=== PATIENT | female | born 2000 | race Caucasian/White ===

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

== ENCOUNTER 2022-02-17 17:51 | Emergency (ER) | payer MEDICAID, OTHER ==
[2022-02-17] MEDS ORDERED: Alum Hydrox/Mag Hydrox/Simeth 30 ML, Lidocaine 2% 15 ML PO ONE ×2 (18:07)
[2022-02-17 20:20] VITALS: BP 109/67; PULSE 90
== END 2022-02-17 20:05 | disposition home or self-care (01) ==
LOC: JD.ED 17:51
DX: R07.89 Other chest pain (principal); F17.210 Nicotine dependence, cigarettes, uncomplicated; E66.9 Obesity, unspecified; Z68.37 Body mass index [BMI] 37.0-37.9, adult; Z86.16 Personal history of COVID-19
CPT/HCPCS: 36415; 71045; 80053; 81025; 83735; 84443; 84484; 85025; 85379; 93005; 99285; A9270; 99284

== ENCOUNTER 2022-03-22 11:25 | Emergency (ER) | payer MEDICAID ==
[2022-03-22 12:14] VITALS: BP 114/74; PULSE 85
[2022-03-22] MEDS ORDERED: Lactated Ringers 1,000 ML IV ONE ×2 (12:59→15:30)
[2022-03-22] MEDS ORDERED: Vitamin B6-pyridOXINE 50 MG Tab PO STA (15:30)
== END 2022-03-22 16:17 | disposition home or self-care (01) ==
LOC: JD.ED 11:25
DX: O99.891 Other specified diseases and conditions complicating pregnancy (principal); R19.7 Diarrhea, unspecified; Z86.16 Personal history of COVID-19; Z3A.01 Less than 8 weeks gestation of pregnancy
CPT/HCPCS: 36415; 80053; 83690; 83735; 84703; 85025; 96360; 99284; A9270; J7120

== ENCOUNTER 2022-04-24 11:03 | Emergency (ER) | payer MEDICAID, OTHER ==
[2022-04-24 11:14] VITALS: BP 112/78; PULSE 94
[2022-04-24] MEDS ORDERED: Sodium Chloride 0.9% 10 ML Syringe FLUSH PRN (11:15)
== END 2022-04-24 12:54 | disposition home or self-care (01) ==
LOC: JD.ED 11:03
DX: O26.851 Spotting complicating pregnancy, first trimester (principal); E66.9 Obesity, unspecified; Z3A.12 12 weeks gestation of pregnancy; Z86.16 Personal history of COVID-19; Z87.891 Personal history of nicotine dependence; Z68.38 Body mass index [BMI] 38.0-38.9, adult
CPT/HCPCS: 36415; 76801; 76801-26; 80053; 81001; 85025; 99284

== ENCOUNTER 2022-05-28 08:21 | Emergency (ER) | payer MEDICAID ==
[2022-05-28 09:50] VITALS: BP 120/54; PULSE 99
[2022-05-28] MEDS ORDERED: Sodium Chloride 0.9% 1,000 ML IV ONE (10:06)
[2022-05-28] MEDS ORDERED: Ondansetron 4 MG Tab.DIS PO ONE (10:56)
== END 2022-05-28 12:04 | disposition home or self-care (01) ==
LOC: JD.ED 08:21
DX: O99.891 Other specified diseases and conditions complicating pregnancy (principal); R10.9 Unspecified abdominal pain; Z3A.17 17 weeks gestation of pregnancy; Z86.16 Personal history of COVID-19
CPT/HCPCS: 36415; 81003; 84702; 96360; 99284; A9270; J7030; 99283

== ENCOUNTER 2023-06-18 12:02 | Emergency (ER) | payer MEDICAID ==
[2023-06-18 14:54] LABS: APPEARANCE,URINE CLEAR (Clear); BILIRUBIN,URINE NEGATIVE (Negative); COLOR,URINE YELLOW (Yellow); GLUCOSE,URINE NEGATIVE (Negative); KETONES,URINE 3+ (Negative); LEUKOCYTE ESTERASE,URINE 1+ (Negative); NITRITE,URINE NEGATIVE (Negative); OCCULT BLOOD,URINE NEGATIVE (Negative); PROTEIN,URINE NEGATIVE (Negative); UROBILINOGEN,URINE 0.2 (0.2-1.0)
[2023-06-18 15:10] LABS: BACTERIA,URINE MODERATE /hpf (FEW); EPITHELIAL CELLS,URINE 20-30 /hpf (0-5); MUCUS,URINE MODERATE /hpf (FEW); RBC,URINE 0-5 /hpf (0-5); WBC,URINE 20-30 /hpf (0-5)
[2023-06-18] MEDS ORDERED: Amoxicillin/Clavulanate K 875-125 MG Tab PO ONE (15:20)
[2023-06-18 15:44] VITALS: BP 109/73; PULSE 105
== END 2023-06-18 15:40 | disposition home or self-care (01) ==
LOC: JD.ED 12:02
DX: O26.852 Spotting complicating pregnancy, second trimester (principal); E66.9 Obesity, unspecified; Z86.16 Personal history of COVID-19; Z3A.15 15 weeks gestation of pregnancy
CPT/HCPCS: 76801; 81001; 87086; 99284; A9270; 99283

== ENCOUNTER 2023-07-21 14:56 | Emergency (ER) | payer MEDICAID ==
[2023-07-21 15:09] VITALS: BP 147/90; PULSE 98
== END 2023-07-21 16:26 | disposition left against medical advice (07) ==
LOC: JD.ED 14:56
DX: Z53.21 Procedure and treatment not carried out due to patient leaving prior to being seen by health care provider (principal)

== ENCOUNTER 2023-08-14 09:46 | Observation (INO) | payer MEDICAID ==
[2023-08-14 10:49] VITALS: BP 118/77; PULSE 90
== END 2023-08-14 10:47 | disposition home or self-care (01) ==
LOC: JD.OBCHECK 09:46 → JD.OB 09:49 → JD.OBCHECK 09:58 → JD.OB 09:59
PROVIDERS: ADMIT Family Medicine; ATTEND Family Medicine
DX: O99.891 Other specified diseases and conditions complicating pregnancy (principal); N89.8 Other specified noninflammatory disorders of vagina; O36.8190 Decreased fetal movements, unspecified trimester, not applicable or unspecified; Z3A.34 34 weeks gestation of pregnancy
CPT/HCPCS: 59025; 84112; G0378

== ENCOUNTER 2024-06-27 18:02 | Emergency (ER) | payer MEDICAID, OTHER ==
[2024-06-27 18:20] VITALS: BP 129/72; PULSE 88
[2024-06-27] MEDS ORDERED: Lidocaine 1% 10 ML MDV INJECT ONE (18:48)
== END 2024-06-27 19:15 | disposition left against medical advice (07) ==
LOC: JD.ED 18:02
DX: S91.321A Laceration with foreign body, right foot, initial encounter (principal); E66.9 Obesity, unspecified; Z86.16 Personal history of COVID-19; Z68.41 Body mass index [BMI] 40.0-44.9, adult; W25.XXXA Contact with sharp glass, initial encounter
CPT/HCPCS: 99282; 99283

== ENCOUNTER 2025-03-15 09:04 | Emergency (ER) | payer MEDICAID, OTHER ==
[2025-03-15] MEDS: Sodium Chloride 0.9% 1,000 ML IV STA (10:24)
[2025-03-15] MEDS: Ondansetron 4 MG/2 ML SDV IVPUSH ONE (10:25)
[2025-03-15] MEDS: HYDROmorphone 0.5 MG/0.5 ML Syringe IVPUSH ONE ×2 (10:26→13:31)
[2025-03-15] MEDS: Sodium Chloride 0.9% 10 ML Syringe FLUSH PRN (10:28)
[2025-03-15 10:29] LABS: BASOPHILS PERCENT AUTO 0.3 % (0.0-1.0); EOSINOPHILS PERCENT AUTO 0.3 % (0.0-6.0); HEMATOCRIT 41.1 % (37.0-47.0); IMMATURE GRAN ABSOLUTE AUTO 0.02 K/mm3 (0.00-0.05); IMMATURE GRAN PERCENT AUTO 0.3 % (0.0-0.4); LYMPHOCYTES ABSOLUTE AUTO 1.2 K/mm3 (1.0-4.8); LYMPHOCYTES PERCENT AUTO 16.2 % (24.0-44.0); MEAN CORPUSCULAR HEMOGLOBIN 28.2 pg (28.0-32.0); MEAN CORPUSCULAR HGB CONC 32.4 g/dl (32.0-36.0); MEAN CORPUSCULAR VOLUME 87.1 fl (83.0-99.0); MONOCYTES ABSOLUTE AUTO 0.5 K/mm3 (0.0-0.8); MONOCYTES PERCENT AUTO 7.5 % (0.0-8.0); NEUTROPHILS ABSOLUTE AUTO 5.4 K/mm3 (1.8-7.7); NEUTROPHILS PERCENT AUTO 75.4 % (41.0-71.0); RED BLOOD CELL COUNT 4.72 M/mm3 (4.10-5.30)
[2025-03-15 10:30] LABS: HEMOGLOBIN 13.3 gm/dl (12.0-16.0); PLATELET COUNT,PLT 264 K/mm3 (150-400)
[2025-03-15 10:47] LABS: ALBUMIN 3.6 g/dl (3.4-5.0); ANION GAP 11.9 (5-15); BILIRUBIN TOTAL 0.5 mg/dL (0.2-1.0); CALCIUM 8.8 mg/dL (8.5-10.1); CREATININE 0.6 mg/dL (0.55-1.02); EST CRCL DRUG DOSING (CG) 125.92 mL/min; POTASSIUM,K 3.9 mEq/L (3.5-5.1); PROTEIN TOTAL,TP 7.3 g/dl (6.4-8.2)
[2025-03-15 13:20] LABS: APPEARANCE,URINE CLEAR (Clear); BILIRUBIN,URINE NEGATIVE (Negative); COLOR,URINE YELLOW (Yellow); GLUCOSE,URINE NEGATIVE (Negative); KETONES,URINE NEGATIVE (Negative); LEUKOCYTE ESTERASE,URINE NEGATIVE (Negative); NITRITE,URINE NEGATIVE (Negative); OCCULT BLOOD,URINE 2+ (Negative); PH,URINE 6.5 (5.0-8.0); PROTEIN,URINE NEGATIVE (Negative)
[2025-03-15 13:30] LABS: AMORPHOUS SEDIMENT,URINE FEW /hpf (NOT SEEN); BACTERIA,URINE FEW /hpf (FEW); MUCUS,URINE FEW /hpf (FEW); RBC,URINE 0-5 /hpf (0-5); WBC,URINE 0-5 /hpf (0-5)
[2025-03-15 14:26] VITALS: BP 127/86; PULSE 88
== END 2025-03-15 14:29 | disposition home or self-care (01) ==
LOC: JD.ED 09:04
DX: R10.13 Epigastric pain (principal); R10.2 Pelvic and perineal pain; Z79.899 Other long term (current) drug therapy
CPT/HCPCS: 36415; 76817; 80053; 81001; 83690; 84702; 85025; 96361; 96374; 96375; 96376; 99284; J2405; J7030; 99283

== ENCOUNTER 2025-07-09 13:31 | Emergency (ER) | payer SELFPAY ==
[2025-07-09] MEDS ORDERED: Sodium Chloride 0.9% 10 ML Syringe FLUSH PRN (14:19)
[2025-07-09] MEDS: Ondansetron 4 MG/2 ML SDV IVPUSH ONE (14:33)
[2025-07-09 14:36] LABS: BASOPHILS ABSOLUTE AUTO 0.0 K/mm3 (0.0-0.2); BASOPHILS PERCENT AUTO 0.3 % (0.0-1.0); EOSINOPHILS ABSOLUTE AUTO 0.1 K/mm3 (0.0-0.4); EOSINOPHILS PERCENT AUTO 0.5 % (0.0-6.0); IMMATURE GRAN ABSOLUTE AUTO 0.02 K/mm3 (0.00-0.05); IMMATURE GRAN PERCENT AUTO 0.2 % (0.0-0.4); LYMPHOCYTES ABSOLUTE AUTO 2.4 K/mm3 (1.0-4.8); LYMPHOCYTES PERCENT AUTO 24.6 % (24.0-44.0); MEAN PLATELET VOLUME 10.3 fl (9.4-12.3); MONOCYTES ABSOLUTE AUTO 0.6 K/mm3 (0.0-0.8); MONOCYTES PERCENT AUTO 5.7 % (0.0-8.0); NEUTROPHILS ABSOLUTE AUTO 6.7 K/mm3 (1.8-7.7); NEUTROPHILS PERCENT AUTO 68.7 % (41.0-71.0); NRBC ABSOLUTE 0.00 (0.00-0.02); NRBC PERCENT 0.0 % (0.0-0.2); PLATELET COUNT,PLT 310 K/mm3 (150-400); RED BLOOD CELL COUNT 5.00 M/mm3 (4.10-5.30); WHITE BLOOD CELL COUNT,WBC 9.80 K/mm3 (3.9-11.3)
[2025-07-09 14:46] LABS: A/G RATIO 1.0 (1-2); ALANINE AMINOTRANSFERASE,ALT 26.0 U/L (14-59); ASPARTATE AMNIOTRANSFERASE,AST 22.0 U/L (15-37); BILIRUBIN TOTAL 0.3 mg/dL (0.2-1.0); BLOOD UREA NITROGEN,BUN 14.0 mg/dL (7-18); CARBON DIOXIDE,CO2 27.0 mEq/L (21-32); CHLORIDE,CL 103.0 mEq/L (98-107); CREATININE 0.6 mg/dL (0.55-1.02); EST CRCL DRUG DOSING (CG) 125.92 mL/min; ESTIMATED GFR 129.0 mL/min (>60); GLUCOSE RANDOM 87.0 mg/dL (70-99); POTASSIUM,K 3.8 mEq/L (3.5-5.1); PROTEIN TOTAL,TP 8.1 g/dl (6.4-8.2); SODIUM,NA 141.0 mEq/L (136-145)
[2025-07-09 16:39] LABS: APPEARANCE,URINE CLEAR (Clear); GLUCOSE,URINE NEGATIVE (Negative); OCCULT BLOOD,URINE NEGATIVE (Negative)
[2025-07-09 16:48] LABS: EPITHELIAL CELLS,URINE 0-5 /hpf (0-5)
[2025-07-09 17:24] VITALS: BP 122/70; PULSE 78
== END 2025-07-09 17:24 | disposition home or self-care (01) ==
LOC: JD.ED 13:31
DX: R55 Syncope and collapse (principal); J45.909 Unspecified asthma, uncomplicated; E66.9 Obesity, unspecified; Z68.41 Body mass index [BMI] 40.0-44.9, adult; Z86.16 Personal history of COVID-19
CPT/HCPCS: 36415; 70450; 70450-26; 80053; 81001; 83735; 84703; 85025; 86140; 93005; 93010; 96361; 96374; 99283; 99284-25; A9270-GY; J2405; J7030